=== PATIENT | male | born 1955 | race Caucasian/White ===

== ENCOUNTER 2016-07-02 05:23 | Day surgery (SDC) | payer MEDICAID ==
[~2016-07-02] VITALS: Ht 175.3 cm; Wt 72.3 kg
[2016-07-02] VITALS (7 sets, daily range): BP systolic 100–121; BP diastolic 49–61; PULSE 79–88; TEMP 97.6–98.5
[~2016-07-02 05:23] MED LIST: ACIDOPHILUS; ALBUTEROL0.83 MG/ML IH; ASPIRIN 32325 MG/TAB PO; ATIVAN 0.50.5 MG/TAB PO; ATIVAN0.5 MG PO; CELEXA 20MG20 MG/TAB PO; CELEXA20 MG PO; DEBROX OT; DILANTIN; DULCOLAX10 MG RC; LIPITOR20 MG PO; LOTRIMIN1% TP; METHYLPHENIDATE; MILK OF MA400 MG/51 PO; MULTIPLE VITAMI1 TAB PO; MVI; MYLANTA 150 ML150 M1 PO; NICODERM C7 MG/PATCH TD; NORCO 325 MG-51 TAB PO; NORCO 325 MG-7.1 TAB PO; NORVASC2.5 MG PO; OSCAL 500 TAB500 MG PO; PEPCID 20MG TAB20 MG PO; PERCOCET 325 MG1 TA2 PO; PHENERGAN 25 TA25 MG; PHENERGAN 25 TA25 MG PO; RITALIN 5MG5 MG/TAB PO; SENNA-S 50 MG-81 TAB PO; SERAX 15MG15 MG/CAP PO; SYNTHROID0.05 MG PO; SYNTHROID0.05 MG/TA PO; TYLENOL 325MG325 MG PO; TYLENOL SU650 MG/SUP RC; VANCOCIN H125 MG/CAP PO; VITAMIN C500 MG PO
[2016-07-02] MEDS ORDERED: NORCO 325 MG-51 TAB PO ×2 (08:14→14:29)
[2016-07-02] MEDS ORDERED: [UNRECOGNIZED DRUG - CODE] TP (08:16)
[2016-07-02] MEDS ORDERED: BENADRYL25 M2 PO (08:17)
[2016-07-02] MEDS ORDERED: SALESE1 LOZ MM (08:17)
[2016-07-02] MEDS ORDERED: MILK OF MA400 MG/52 PO (08:19)
[2016-07-02] MEDS ORDERED: DULCOLAX S10 MG/SUPP RC (08:20)
[2016-07-02] MEDS ORDERED: TYLENOL SU650 MG/SUP RC (08:21)
[2016-07-02] MEDS ORDERED: ALBUTEROL0.83 MG/ML IH (08:27)
[2016-07-02] MEDS ORDERED: IMODIUM 2MG CAPS2 MG PO (08:29)
[2016-07-02] MEDS ORDERED: ROBITUSSIN DM 105 ML PO (08:29)
[2016-07-02] MEDS ORDERED: [UNRECOGNIZED DRUG - OTHER] TOP (08:33)
== END 2016-07-02 16:05 ==
LOC: SDCO 05:23
DX: M20.11 Hallux valgus (acquired), right foot (principal)
CPT/HCPCS: C1713; J2704; J3010; J7120

== ENCOUNTER → 2018-12-26 | Outpatient (CLI) | payer MEDICARE, MEDICAID ==
[~2018-12-26] MED LIST changes: +BENADRYL25 M2 PO; +DULCOLAX S10 MG/SUPP RC; +IMODIUM 2MG CAPS2 MG PO; +MILK OF MA400 MG/52 PO; +ROBITUSSIN DM 105 ML PO; +SALESE1 LOZ MM; +[UNRECOGNIZED DRUG - CODE] TP; +[UNRECOGNIZED DRUG - OTHER] TOP
== END ==
LOC: COL.RAD 14:22
DX: S70.01XA Contusion of right hip, initial encounter (principal); W19.XXXA Unspecified fall, initial encounter

== ENCOUNTER → 2020-10-25 | Outpatient (CLI) | payer MEDICARE, MEDICAID | LOC: COL.RAD 09:29 | DX: Z13.6 Encounter for screening for cardiovascular disorders (principal) ==

== ENCOUNTER 2022-03-31 02:31 | Emergency (ER) | payer MEDICARE, MEDICAID ==
[~2022-03-31] VITALS: Ht 175.3 cm; Wt 72.7 kg
[2022-03-31 02:43] VITALS: BP 127/52; TEMP 97.6
[2022-03-31] MEDS ORDERED: CIPRO 500MG TA500 MG PO (04:05)
[2022-03-31 04:32] VITALS: PULSE 77
== END 2022-03-31 04:32 | disposition home or self-care (01) ==
LOC: COL.ER 02:31
DX: S01.311A Laceration without foreign body of right ear, initial encounter (principal); Z88.1 Allergy status to other antibiotic agents; Z23 Encounter for immunization; W05.0XXA Fall from non-moving wheelchair, initial encounter; Y92.129 Unspecified place in nursing home as the place of occurrence of the external cause